=== PATIENT | female | born 1985 | race Caucasian/White ===

== ENCOUNTER 2017-07-08 17:11 | Observation (INO) ==
[2017-07-08] MEDS ORDERED: *HR* Morphine 2 MG/ML SYRINGE IVP ONE ×2 (17:44→20:29)
[2017-07-08] MEDS ORDERED: 0.9 % Sodium Chloride 1,000 ML IVC ONE (17:44)
[2017-07-08] MEDS ORDERED: Ondansetron 4 MG/2 ML VIAL IVP ONE (17:44)
--- NOTE | 2017-07-08 17:47 | Emergency Department Note ---
START Narrative - START START: I examined this patient and my medical decision-making was reviewed with the [employer]/PA/Advanced Practice Nurse/Resident Physician. I agree with the documented findings, disposition and treatment plan as described except to the extent set forth below. ED attending: Patient's emergency medicine resident Dr. GARCIA. Please see copy of this note for H&P evaluation and management and ED disposition. We both had independent [id number] time in contact with this patient. Briefly: A 32-year-old prisoner brought in by officer for right lower quadrant pain for several hours. On left side now right with some mild guarding but no rebound. Labs urinalysis and CT scan pending. Disposition pending
--- NOTE | 2017-07-08 17:48 | Emergency Department Note ---
Disposition Clinical Impression: Acute appendicitis Qualifiers: Acute appendicitis type: unspecified acute appendicitis type Qualified Code(s) : K35.80 - Unspecified acute appendicitis Disposition: Admitted As Inpatient Condition: Good Referrals: NONE,PCP [Primary Care Provider] - Forms: Work/School Release, ED Satisfaction Letter Abdominal Pain HPI - General Chief Complaint: ED Abdominal Pain Stated Complaint: lower abd pain// sent from [facility] poss. appy Time Seen by Provider: 07/08/17 17:39 Source: patient Mode of arrival: other (police custody) Limitations: no limitations Nursing Notes Reviewed: Yes Vital Signs Reviewed: Yes - History of Present Illness HPI Narrative: 32-year-old female no medical history who presents to the ER with a chief complaint of abdominal pain. Patient presents in police custody. Reports that she started having pain around 4:00 today. Describes it as atraumatic in nature sharp in the left lower quadrant and around her belly button. She states that after that it started to feel worse in her right lower quadrant. She denies vomiting diarrhea. Does report that she felt nauseous. No fevers. No chest pain or shortness of breath. Denies any dysuria or hematuria. No prior history of inflammatory bowel disease. No history of ovarian cyst. No prior surgical history. No other complaints. Pt Subjective Complaint: abdominal pain Onset (ago): hour(s) Consistency: constant Location: LLQ, RLQ Pain Severity: severe Pain Scale: 10 Quality: stabbing Radiation: RLQ Migration to: RLQ Improves with: nothing Worsens with: nothing Associated symptoms: Reports: nausea. Denies: vomiting, diarrhea, fever, dysuria, hematuria - Related Data Allergies Allergy/AdvReac Type Severity Reaction Status Date / Time Penicillins Allergy Anaphylaxis Verified 07/08/17 17:21 All systems ED: reviewed and negative except as stated. Constitutional: Denies: fever Cardiovascular: Denies: chest pain Respiratory: Denies: dyspnea Gastrointestinal: Reports: abdominal pain, nausea. Denies: vomiting, diarrhea Genitourinary: Denies: dysuria, hematuria Musculoskeletal: Denies: back pain Abdominal Pain PMH - Past Medical History Medical history: Reports: kidney stones Female Surgical History: Reports: Psychiatric history: Reports: no psych history - Social History Smoking status: Never smoker Alcohol use: Reports: none Drug use: Reports: none Physical Exam - General Limitations: no limitations General appearance: alert, in distress - Head Head exam: atraumatic, normocephalic, normal inspection - Eye Eye exam: Present: normal appearance, EOMI - ENT ENT exam: normal exam - Neck Neck exam: Present: normal inspection, full ROM - Chest Chest inspection: Present: normal inspection, symmetric chest wall rise - Respiratory Respiratory exam: Present: normal lung sounds bilaterally - Cardiovascular Cardiovascular exam: Present: normal rhythm, tachycardia, normal heart sounds - Abdominal Exam Abdominal exam: Present: soft, tenderness (Patient has moderate tenderness to palpation in the right lower quadrant, suprapubic and left lower quadrant. No distention, guarding or rigidity on exam.). Absent: distention, guarding, rigidity - Extremities Exam Extremities exam: Present: normal inspection, full ROM - Expanded Upper Extremity Exam Shoulder exam: Present: normal inspection, full ROM Arm exam: Present: normal inspection, full ROM Elbow exam: Present: normal inspection, full ROM Forearm/Wrist exam: Present: normal inspection, full ROM Hand exam: Present: normal inspection, full ROM - Expanded Lower Extremity Exam Hip/Pelvis exam: Present: normal inspection, full ROM Upper leg exam: Present: normal inspection, full ROM Knee exam: Present: normal inspection, full ROM Lower leg exam: Present: normal inspection, full ROM Ankle exam: Present: normal inspection, full ROM Foot/toe exam: Present: normal inspection, full ROM Neurovascular/Tendon exam: Absent: motor deficit, sensory deficit - Neurological Exam Neurological exam: Present: alert, other (GCS 15. Nonfocal neurologic exam. Moves all extremities equally.) - Psychiatric Psychiatric exam: Present: normal affect, normal mood - Skin Skin exam: Present: warm, dry, intact, normal color Course Course Narrative: Patient seen and examined. Vital signs reviewed. We will obtain a CT scan of the abdomen and pelvis for appendicitis rule out. Labs and urinalysis ordered as well. Patient be provided with IV fluids, antiemetics and analgesics. - Consultations Consultation #1: I spoke with the on-call surgeon Dr. Camara. Discussed the patient's history exam labs and imaging. He will be down to see the patient. Vital Signs Temperature 98.0 F 07/08/17 17:18 Pulse Rate 108 07/08/17 17:18 Respiratory Rate 24 07/08/17 17:18 Blood Pressure 176/104 07/08/17 17:18 O2 Sat by Pulse Oximetry 100 07/08/17 17:18 Temperature 98.0 F 07/08/17 17:18 Pulse Rate 108 07/08/17 17:18 Respiratory Rate 24 07/08/17 17:18 Blood Pressure 176/104 07/08/17 17:18 O2 Sat by Pulse Oximetry 100 07/08/17 17:18 Oxygen Delivery Oxygen Delivery Room Air Abdominal Pain - MDM Narrative Medical decision making narrative: 32-year-old female presents to the ER due to abdominal pain. Started today. No other symptoms. CT scan demonstrates acute appendicitis. She has a slight bump in her white count. Consulted surgery in the emergency department. She is accepted to their service for further management. - Lab Data Lab results reviewed: Yes I reviewed the patient's lab results. Result diagrams: 07/08/17 18:03 07/08/17 18:03 Lab Results 07/08/17 07/08/17 07/08/17 Range/Units 17:50 17:50 18:03 WBC 12.2 H (4.3-11.1) K/mcL RBC 4.46 (3.82-4.97) M/mcL Hgb 11.5 (11.5-15.4) g/dL Hct 35.5 (35.3-44.9) % MCV 79.6 L (83.0-100.0) fL MCH 25.8 L (28.0-33.3) pg MCHC 32.4 (31.6-35.5) g/dL RDW 14.6 H (11.5-14.5) % Plt Count 227 (140-400) K/mcL MPV 12.8 H (9.4-12.4) fL Immature Gran % 0.2 (0-4) % Seg Neutrophils % 80.5 % Lymphocytes % 12.7 % Monocytes % 5.1 % Eosinophils % 1.0 % Basophils % 0.5 % Neutrophils # 9.8 H (1.6-8.9) K/mcL Lymphocytes # 1.6 (0.6-4.6) K/mcL Monocytes # 0.6 (0.0-1.3) K/mcL Eosinophils # 0.1 (0.0-0.6) K/mcL Basophils # 0.1 (0.0-0.2) K/mcL PT (9.4-12.1) Seconds INR Sodium (136-145) mEq/L Potassium (3.5-4.5) mEq/L Chloride (98-109) mEq/L Carbon Dioxide (19-29) mEq/L BUN (7-20) mg/dL Creatinine (0.57-1.11) mg/dL Est GFR ( Amer) (> 60) Est GFR (Non-Af Amer) (> 60) BUN/Creatinine Ratio (6-26) Glucose (70-99) mg/dL Calculated Osmolality (280-300) Calcium (8.6-10.8) mg/dL Total Bilirubin (0.2-1.2) mg/dL Direct Bilirubin (0.0-0.5) mg/dL Indirect Bilirubin (0.0-1.2) mg/dL AST (5-34) Units/L ALT (0-55) Units/L Alkaline Phosphatase (38-126) Units/L Serum Total Protein (6.0-8.3) g/dL Albumin (3.5-5.0) g/dL Globulin (2.4-3.5) g/dL Albumin/Globulin Ratio (1.1-2.2) Lipase (8-78) Units/L Urine Color Yellow (Yellow) Urine Clarity Slightly Hazy (Clear) Urine pH 6.0 (5.0-8.0) pH Units Ur Specific [place] 1.027 H (1.010-1.025) Urine Protein 30 H (Neg-Trace) mg/dL Urine Glucose (UA) Normal (Normal) mg/dL Urine Ketones 40 H (Negative) mg/dL Urine Blood Negative (Negative) Urine Nitrite Negative (Negative) Urine Bilirubin Negative (Negative) Urine Urobilinogen Normal (Normal) mg/dL Ur Leukocyte Esterase Trace H (Negative) Urine Microscopic RBC 5-15 H (0-3) per hpf Urine Microscopic WBC 5-15 H (0-3) per hpf Ur Squamous Epith Cells Many H (None-Few) per lpf Urine Bacteria Few (None-Few) per hpf Hyaline Casts None Seen (None-Few) per lpf Ur Culture Indicated? YES A (NO) Urine Test Negative (Negative) 07/08/17 07/08/17 Range/Units 18:03 18:03 WBC (4.3-11.1) K/mcL RBC (3.82-4.97) M/mcL Hgb (11.5-15.4) g/dL Hct (35.3-44.9) % MCV (83.0-100.0) fL MCH (28.0-33.3) pg MCHC (31.6-35.5) g/dL RDW (11.5-14.5) % Plt Count (140-400) K/mcL MPV (9.4-12.4) fL Immature Gran % (0-4) % Seg Neutrophils % % Lymphocytes % % Monocytes % % Eosinophils % % Basophils % % Neutrophils # (1.6-8.9) K/mcL Lymphocytes # (0.6-4.6) K/mcL Monocytes # (0.0-1.3) K/mcL Eosinophils # (0.0-0.6) K/mcL Basophils # (0.0-0.2) K/mcL PT 12.2 H (9.4-12.1) Seconds INR 1.1 Sodium 138 (136-145) mEq/L Potassium 3.6 (3.5-4.5) mEq/L Chloride 105 (98-109) mEq/L Carbon Dioxide 20 (19-29) mEq/L BUN 12 (7-20) mg/dL Creatinine 0.89 (0.57-1.11) mg/dL Est GFR ( Amer) > 60 (> 60) Est GFR (Non-Af Amer) > 60 (> 60) BUN/Creatinine Ratio 13 (6-26) Glucose 99 (70-99) mg/dL Calculated Osmolality 286 (280-300) Calcium 9.5 (8.6-10.8) mg/dL Total Bilirubin 0.5 (0.2-1.2) mg/dL Direct Bilirubin 0.2 (0.0-0.5) mg/dL Indirect Bilirubin 0.3 (0.0-1.2) mg/dL AST 22 (5-34) Units/L ALT 19 (0-55) Units/L Alkaline Phosphatase 95 (38-126) Units/L Serum Total Protein 7.3 (6.0-8.3) g/dL Albumin 4.0 (3.5-5.0) g/dL Globulin 3.3 (2.4-3.5) g/dL Albumin/Globulin Ratio 1.2 (1.1-2.2) Lipase 29 (8-78) Units/L Urine Color (Yellow) Urine Clarity (Clear) Urine pH (5.0-8.0) pH Units Ur Specific [place] (1.010-1.025) Urine Protein (Neg-Trace) mg/dL Urine Glucose (UA) (Normal) mg/dL Urine Ketones (Negative) mg/dL Urine Blood (Negative) Urine Nitrite (Negative) Urine Bilirubin (Negative) Urine Urobilinogen (Normal) mg/dL Ur Leukocyte Esterase (Negative) Urine Microscopic RBC (0-3) per hpf Urine Microscopic WBC (0-3) per hpf Ur Squamous Epith Cells (None-Few) per lpf Urine Bacteria (None-Few) per hpf Hyaline Casts (None-Few) per lpf Ur Culture Indicated? (NO) Urine Test (Negative) - Radiology Data Radiology results reviewed: Yes I reviewed the patient's radiology results. Abdomen/Pelvis CT 07/08/17 17:44 IMPRESSION: 1. Acute appendicitis. D/ / Pavel Greenberg MD / Pavel Greenberg MD Interpreting Provider: Pavel Greenberg MD
[2017-07-08 18:08] LABS: Bilirubin,Urine Negative (Negative); Blood,Urine Negative (Negative); Color,Urine Yellow (Yellow); Glucose,Urine (UA) Normal (Normal); Ketones,Urine 40 mg/dL (Negative); Leukocyte Esterase,Urine Trace (Negative); Nitrite,Urine Negative (Negative); Protein,Urine 30 mg/dL (Neg-Trace); Specific Gravity,Urine 1.027 (1.010-1.025); Urobilinogen,Urine Normal (Normal)
[2017-07-08 18:10] LABS: Bacteria,Urine Few per hpf (None-Few); Hyaline Casts,Urine None Seen per lpf (None-Few); Squamous Epithelial Cell,Urine Many per lpf (None-Few)
[2017-07-08 18:11] LABS: Clarity,Urine Slightly Hazy (Clear)
[2017-07-08 18:21] LABS: Basophils # 0.1 K/mcL (0.0-0.2); Basophils % 0.5 %; Eosinophils # 0.1 K/mcL (0.0-0.6); Hematocrit 35.5 % (35.3-44.9); Hemoglobin 11.5 g/dL (11.5-15.4); Immature Granulocytes % 0.2 % (0-4); Lymphocytes # 1.6 K/mcL (0.6-4.6); Lymphocytes % 12.7 %; Mean Corpuscular HGB Conc 32.4 g/dL (31.6-35.5); Mean Corpuscular Hemoglobin 25.8 pg (28.0-33.3); Mean Corpuscular Volume 79.6 fL (83.0-100.0); Mean Platelet Volume 12.8 fL (9.4-12.4); Monocytes # 0.6 K/mcL (0.0-1.3); Monocytes % 5.1 %; Neutrophils # 9.8 K/mcL (1.6-8.9); Platelet Count 227 K/mcL (140-400); Red Blood Count 4.46 M/mcL (3.82-4.97); Red Cell Distribution Width 14.6 % (11.5-14.5); Segmented Neutrophils % 80.5 %
[2017-07-08 18:31] LABS: INR 1.1; Prothrombin Time 12.2 Seconds (9.4-12.1)
[2017-07-08 18:37] LABS: Alanine Aminotransferase 19 Units/L (0-55); Albumin/Globulin Ratio 1.2 (1.1-2.2); Alkaline Phosphatase 95 Units/L (38-126); Aspartate Amino Transferase 22 Units/L (5-34); BUN/Creatinine Ratio 13 (6-26); Bilirubin,Direct 0.2 mg/dL (0.0-0.5); Bilirubin,Indirect 0.3 mg/dL (0.0-1.2); Bilirubin,Total 0.5 mg/dL (0.2-1.2); Blood Urea Nitrogen 12 mg/dL (7-20); Calcium 9.5 mg/dL (8.6-10.8); Carbon Dioxide 20 mEq/L (19-29); Chloride 105 mEq/L (98-109); Globulin 3.3 g/dL (2.4-3.5); Glucose 99 mg/dL (70-99); Lipase 29 Units/L (8-78); Osmolality,Calculated 286 (280-300); Potassium 3.6 mEq/L (3.5-4.5); Sodium 138 mEq/L (136-145); Total Protein 7.3 g/dL (6.0-8.3); eGFR For African Americans > 60 (> 60); eGFR For Non-African Americans > 60 (> 60)
--- NOTE | 2017-07-08 20:24 | General Surg History&Physical ---
Date of Encounter: 07/08/17 Time of Encounter: 20:00 Assessment and Plan (1) Acute appendicitis Current Visit: Yes Status: Acute The assessment and plan as outlined above was discussed with the patient and/or family members who expressed understanding and agreement. All questions were answered. The patient has acute appendicitis by clinical presentation, laboratory evaluation, and radiologic evaluation. I recommended urgent laparoscopic appendectomy. I discussed the risks and benefits of surgery with her she understands and wishes to proceed. Qualifiers: Acute appendicitis type: with localized peritonitis Qualified Code(s): K35.3 - Acute appendicitis with localized peritonitis History of Present Illness Chief complaint: Abdominal pain HPI: Ms. Link is a 32 year old female With acute onset of right lower quadrant abdominal pain earlier this afternoon. This was not associated with nausea or vomiting. She is not anorexic. She sought evaluation in the emergency department. She had pain with motion in the pain was localized to the right lower quadrant. She underwent CAT scan of the abdomen that demonstrated acute appendicitis. I personally reviewed the CAT scan and agree with this interpretation. The patient continues to complain of right lower quadrant pain she has shaking and chills but no fever. She now presents for laparoscopic appendectomy Past Med Surg Social Fam HX - Past Medical History Medical history: kidney stones Psychiatric history: no psych history - Social History Smoking Status: Never smoker Smokeless Tobacco Status: No Alcohol use: none Drug use: none Medications and Allergies 3 Allergy/AdvReac Type Severity Reaction Status Date / Time Penicillins Allergy Anaphylaxis Verified 07/08/17 17:21 Review of Systems All systems PM: A 10-system review of systems was performed and is negative for pertinent findings except as documented above in the HPI. General Surgery Exam Initial Vital Signs Temp Pulse Resp BP Pulse Ox 98.0 F 108 24 176/104 100 07/08/17 17:18 07/08/17 17:18 07/08/17 17:18 07/08/17 17:18 07/08/17 17:18 - General physical appearance well developed, well nourished, no distress - ENT normal pinna, normal nares, normal mucosa, no hearing loss, no congestion - Respiratory normal expansion, normal respiratory effort, clear to percussion, clear to auscultation - Cardiovascular Cardiovascular exam: Present: RRR, no murmurs/rubs/gallops - Abdomen Abdomen general surgery: Present: tender, guarding Abdominal Tenderness: Present: RLQ - Neurologic Present: CN 2-12 grossly intact, normal coordination, normal sensation - Musculoskeletal Present: normal gait, normal posture - Psychiatric Psychiatric general surgery: Present: appropriate, oriented to person, oriented to place, oriented to time, speech is normal, memory intact Results - Labs 07/08/17 18:03 07/08/17 18:03 Abnormal lab results WBC 12.2 K/mcL (4.3-11.1) H 07/08/17 18:03 MCV 79.6 fL (83.0-100.0) L 07/08/17 18:03 MCH 25.8 pg (28.0-33.3) L 07/08/17 18:03 RDW 14.6 % (11.5-14.5) H 07/08/17 18:03 MPV 12.8 fL (9.4-12.4) H 07/08/17 18:03 Neutrophils # 9.8 K/mcL (1.6-8.9) H 07/08/17 18:03 PT 12.2 Seconds (9.4-12.1) H 07/08/17 18:03 Ur Specific [place] 1.027 (1.010-1.025) H 07/08/17 17:50 Urine Protein 30 mg/dL (Neg-Trace) H 07/08/17 17:50 Urine Ketones 40 mg/dL (Negative) H 07/08/17 17:50 Ur Leukocyte Esterase Trace (Negative) H 07/08/17 17:50 Urine Microscopic RBC 5-15 per hpf (0-3) H 07/08/17 17:50 Urine Microscopic WBC 5-15 per hpf (0-3) H 07/08/17 17:50 Ur Squamous Epith Cells Many per lpf (None-Few) H 07/08/17 17:50 Ur Culture Indicated? YES (NO) A 07/08/17 17:50 Diabetes panel 07/08/17 Range/Units 18:03 Sodium 138 (136-145) mEq/L Potassium 3.6 (3.5-4.5) mEq/L Chloride 105 (98-109) mEq/L Carbon Dioxide 20 (19-29) mEq/L BUN 12 (7-20) mg/dL Creatinine 0.89 (0.57-1.11) mg/dL Glucose 99 (70-99) mg/dL Calcium 9.5 (8.6-10.8) mg/dL AST 22 (5-34) Units/L ALT 19 (0-55) Units/L Alkaline Phosphatase 95 (38-126) Units/L Albumin 4.0 (3.5-5.0) g/dL Calcium panel 07/08/17 Range/Units 18:03 Calcium 9.5 (8.6-10.8) mg/dL Albumin 4.0 (3.5-5.0) g/dL Pituitary panel 07/08/17 Range/Units 18:03 Sodium 138 (136-145) mEq/L Potassium 3.6 (3.5-4.5) mEq/L Chloride 105 (98-109) mEq/L Carbon Dioxide 20 (19-29) mEq/L BUN 12 (7-20) mg/dL Creatinine 0.89 (0.57-1.11) mg/dL Glucose 99 (70-99) mg/dL Calcium 9.5 (8.6-10.8) mg/dL Adrenal panel 07/08/17 Range/Units 18:03 Sodium 138 (136-145) mEq/L Potassium 3.6 (3.5-4.5) mEq/L Chloride 105 (98-109) mEq/L Carbon Dioxide 20 (19-29) mEq/L BUN 12 (7-20) mg/dL Creatinine 0.89 (0.57-1.11) mg/dL Glucose 99 (70-99) mg/dL Calcium 9.5 (8.6-10.8) mg/dL Total Bilirubin 0.5 (0.2-1.2) mg/dL AST 22 (5-34) Units/L ALT 19 (0-55) Units/L Alkaline Phosphatase 95 (38-126) Units/L Albumin 4.0 (3.5-5.0) g/dL All other labs normal. - Imaging CT scan - abdomen: image reviewed (I personally reviewed the CAT scan of the abdomen. She has a fairly long appendix that appears to be obstructed with periappendiceal inflammation.)
[2017-07-08] MEDS ORDERED: CefOXitin 1,000 MG VIAL ONE (20:36)
[2017-07-08] MEDS ORDERED: *HR* FentaNYL (PF) 100 MCG/2 ML VIAL ONE (20:53)
[2017-07-08] MEDS ORDERED: *HR* Propofol 200 MG/20 ML VIAL IVP ONE ×2 (20:53→21:13)
[2017-07-08] MEDS ORDERED: Lidocaine -MPF 2% 2 ML VIAL ONE (20:54)
[2017-07-08] MEDS ORDERED: Dexamethasone 4 MG/ML VIAL ONE (20:54)
[2017-07-08] MEDS ORDERED: *HR* Rocuronium Bromide 50 MG/5 ML VIAL ONE (20:54)
[2017-07-08] MEDS ORDERED: Ondansetron 4 MG/2 ML VIAL ONE (20:54)
[2017-07-08] MEDS ORDERED: Lidocaine -MPF 4% 5 ML AMPUL ONE (20:55)
--- NOTE | 2017-07-08 21:01 | Anesthesia Evaluation PreOp ---
Date of Encounter: 07/08/17 Time of Encounter: 21:00 - Past History Planned Operation: Lap Appendectomy Cardiac History: Denies any Significant Hx Pulmonary History: Denies Any Significant HX GENERAL NEUROLOGIST History: Denies Any Significant HX Other Medical History: Other (Obese) Anesthesia History: No Prior Anesthetic Complications : No Test: Negative Alcohol Use: none Drug use: none Medications and Allergies 3 Allergy/AdvReac Type Severity Reaction Status Date / Time Penicillins Allergy Anaphylaxis Verified 07/08/17 17:21 - Meds/Allergy Pre-op Review Medications Reviewed: Yes Allergies Reviewed: Yes Anesthesia Results - Labs 07/08/17 18:03 07/08/17 18:03 Anesthesia Exam O2 Sat Height 1.88 m Weight 113.398 kg O2 Sat by Pulse Oximetry 97 O2 Sat by Pulse Oximetry 100 Vital Signs Temp Pulse Resp BP Pulse Ox 98.0 F 108 24 176/104 100 07/08/17 17:18 07/08/17 17:18 07/08/17 17:18 07/08/17 17:18 07/08/17 17:18 Height: 6'2 Weight: 250 lbs NPO (# of Hours): MN Pain Scale: 0 - HEENT Pupil (Motor): Pupils equal, EOMI Mallampati: II Teeth: Normal Oral Opening: Greater than 3 - GENERAL NEUROLOGIST LOC: Oriented GENERAL NEUROLOGIST Motor: Normal RUE, Normal LUE, Normal RLE, Normal LLE, Normal Face GENERAL NEUROLOGIST Sensory: Normal: RUE, LUE, RLE, LLE, Face - Cardiac Rhythm: Regular Murmur: None JVD: No Carotid Bruit: No - Pulmonary Breath Sounds: bilateral Clear Respiratory Effort: Symmetrical Anesthesia Assess/Plan ASA Score: 2 Modified [place] Scale for Level of Consciousness: Cooperative, oriented, and tranquil Anesthetic Plan: General Monitoring Plan: Standard Monitors Recovery Plan: PACU (Discussed GA, agrees to proceed)
[2017-07-08] MEDS ORDERED: Clindamycin 900 MG/50 ML 900 MG/50 ML IV.SOLN IVPB ONE (21:03)
[2017-07-08] MEDS ORDERED: *HR* Succinylcholine 200 MG/10 ML VIAL IVP ONE (21:07)
[2017-07-08] MEDS ORDERED: *HR* HYDROmorphone 2 MG/ML SYRINGE ONE (21:27)
[2017-07-08] MEDS ORDERED: Neostigmine Methylsulfate 3 MG/3 ML SYRINGE ONE (21:39)
--- NOTE | 2017-07-08 21:54 | Operative Note ---
Date of procedure: 07/08/17 Pre-op diagnosis: Acute appendicitis Post-op diagnosis: same Procedure: Laparoscopic appendectomy Anesthesia: JENN Surgeon: Moe Camara Estimated blood loss (cc): 10 Specimen: Appendix Condition: stable Disposition: PACU Procedure in Detail: After informed consent the patient was taken to major operative suite placed in supine position and given adequate general anesthetic. The abdomen is prepped and draped in sterile fashion utilizing ChloraPrep standard draping techniques. Timeout was taken in the patient's identified. I made a vertical midline incision below the umbilicus and dissected down the level of fascia. 2 traction stitches were placed of 0 Vicryl. The abdomen was visually and a Ansari trocar was placed in the abdomen. The abdomen was insufflated to 15 mmHg pressure CO2. Placed a 5 mm trocar in the suprapubic area and 12 mm trocar in the right upper quadrant. The cecum had significant adhesions to the lateral sidewall these were divided under direct vision with electrocautery. This finally able to mobilize the appendix. Mesoappendix was divided with laparoscopic stapling device and a vascular load. The base the appendix was divided with a gastrointestinal load. The appendix was placed in a specimen bag. There was no fecal soilage and there is no free pus. She did have local peritoneal inflammation. Case class is 3. I removed the appendix in a specimen bag. I replaced the umbilical port and irrigated with copious amounts of antibiotic containing solution. All staple lines were intact. There was no evidence of bleeding. All trochars were removed. The fascia was closed with 0 Vicryl and the skin with 20 and 4-0 Vicryl. She tolerated the procedure very well and was transferred to the recovery area in stable condition.
--- NOTE | 2017-07-08 22:13 | Anesthesia Evaluation Post Op ---
Date of Encounter: 07/08/17 Time of Encounter: 22:20 - Vital Signs Vital Signs: Vital Signs/O2 Sat/Glucose, Most Current Temp Pulse Resp BP Pulse Ox 07/08/17 22:05 71 16 153/89 99 07/08/17 21:55 98.6 F 85 20 162/85 98 07/08/17 20:53 16 121/66 07/08/17 20:38 73 16 121/66 97 - Lungs Lungs: Clear Ascult./Percussion - Airway Airway: Non-obstructed - Cardiovascular Regular Rate - Mental Status Mental Status: Alert & Oriented, Answers Appropriately - Pain Pain Scale: 1 - Nausea Vomiting Nausea Vomiting: Not Present - Hydration Hydration: Ice chips - Discharge PostOp Status: Transfer Patient to floor
[2017-07-08] MEDS ORDERED: 0.9 % Sodium Chloride 1,000 ML IVC SCH (23:03)
[2017-07-08] MEDS ORDERED: Ondansetron 4 MG/2 ML VIAL IVP PRN (23:03)
[2017-07-08] MEDS ORDERED: *HR* OxyCODONE/APAP 5/325 TABLET PO PRN (23:03)
[2017-07-08] MEDS ORDERED: *HR* HYDROmorphone (PF) 1 MG/ML SYRINGE IVP PRN (23:03)
[2017-07-09] MEDS ORDERED: Clindamycin 900 MG/50 ML 900 MG/50 ML IV.SOLN IVPB SCH (04:00)
[2017-07-09 06:46] VITALS: BP 126/68
--- NOTE | 2017-07-09 07:52 | Discharge Summary ---
Date of Encounter: 07/09/17 Time of Encounter: 07:15 - Discharge Diagnosis (1) Acute appendicitis Priority: Primary Status: Acute Comments: Acute appendicitis with no evidence of perforation. Qualifiers: Acute appendicitis type: with localized peritonitis Qualified Code(s): K35.3 - Acute appendicitis with localized peritonitis - Discharge Medications Prescriptions: OxyCODONE/APAP 5/325 [Percocet 5/325 MG] 1 each PO Q4HR PRN #24 tab PRN Reason: Pain Home Medications: OxyCODONE/APAP 5/325 [Percocet 5/325 MG] 1 each PO Q4HR PRN #24 tab 07/09/17 [Rx ] Allergies/Adverse Reactions: 3 Allergy/AdvReac Type Severity Reaction Status Date / Time Penicillins Allergy Anaphylaxis Verified 07/08/17 17:21 General Surgery Exam Initial Vital Signs Temp Pulse Resp BP Pulse Ox 98.0 F 108 24 176/104 100 07/08/17 17:18 07/08/17 17:18 07/08/17 17:18 07/08/17 17:18 07/08/17 17:18 - General physical appearance well developed, well nourished, no distress - Abdomen Abdomen general surgery: Present: bowel sounds present, soft, non tender - Incision Incision: Present: clean and dry - Neurologic Present: CN 2-12 grossly intact, normal coordination, normal sensation - Psychiatric Psychiatric general surgery: Present: appropriate, oriented to person, oriented to place, oriented to time, speech is normal, memory intact Date of admission: 07/08/17 21:02 Primary care physician: PCP NONE Discharging clinician: Moe Camara Anticipated date of discharge: 07/09/17 - Patient Status Disposition: Home, Self-Care Condition: Good Functional capacity at discharge: independent ambulation Overall status at discharge: patient is progressing back to baseline - Discharge Instructions Instructions: Laparoscopic Appendectomy (DC) Follow Up With: NONE,PCP [Primary Care Provider] - Moe Camara MD [Partnered Physician] - - Diet and Activity Activity: increase activity as tolerated Diet: advance to your usual diet - Hospital Course Hospital course: Ms. Link is a 32 year old female Was admitted for treatment of acute appendicitis. She underwent laparoscopic appendectomy. Her preoperative pain syndrome is gone. There was no evidence of pus in the abdomen. No indication for home antibiotics. - Time Spent with Patient Total time spent providing and/or coordinating discharge services: Less than 30 minutes
== END 2017-07-09 10:28 | disposition home or self-care (01) ==
LOC: EMEROO 17:11 → 3ANU 17:11
PROVIDERS: ADMIT Surgery; ATTEND Surgery